=== PATIENT | female | born 1995 | race Caucasian/White ===

== ENCOUNTER 2023-02-06 20:44 | Emergency (ER) | payer OTHER ==
[~2023-02-06] VITALS: Ht 160 cm; Wt 75.7 kg
[~2023-02-06 20:44] MED LIST: PRENATAL CAPSU1 EACH PO; SYNTHOID PO
== END 2023-02-06 22:16 | disposition home or self-care (01) ==
LOC: ER 20:44
DX: J06.9 Acute upper respiratory infection, unspecified (principal)
CPT/HCPCS: 96372; 99284; J0696